=== PATIENT | female | born 1975 | race African-American/Black ===

== ENCOUNTER → 2016-08-26 | Outpatient (CLI) | payer BC ==
[~2016-08-26] MED LIST: BACTRIM DS TAB1 EACH; CLEOCIN HCL300 M1 PO; CULTURELLE CAP1 EACH PO; FERRO-TIME325 MG PO; IBUPROFEN PO; IBUPROFEN800 MG; IRON325 MG PO; PAIN RELIEF650 MG PO; ULTRAM PO; ZYVOX600 MG PO; [UNRECOGNIZED DRUG - OTHER]
--- NOTE | ~2016-08-26 | US85 ---
[facility] A Service [facility] RADIOLOGY TEXT RESULTS PATIENT: DEMARCUS BARTH LOCATION: [facility] : 75 UNIT #: [id number] AGE: [address]: EVA RIVERA APRN SEX: F ORDER DR: [id number] [facility] [address] [facility]. [place], [place] [address] [id number] O MR#: [id number] Acc #: [id number] NAME: DEMARCUS BARTH : 1975 SEX: F STUDY DATE/TIME: 08/26/2016 19:19 UNIT: [facility] ROOM: STUDY DESCRIPTION: LE Veins Unilat or Ltd Stdy Ordering Physician: Eva Rivera A.P.R.N. MEDICAL IMAGING REPORT This report is preliminary unless electronic signature is present EXAM Right lower extremity venous duplex 08/26/2016 HISTORY Right lower extremity pain and swelling in right calf for 2 weeks. Evaluate for deep vein thrombosis. History of previous DVT. TECHNIQUE Venous ultrasound examination of the right lower extremity was performed using grayscale, spectral Doppler and color flow Doppler imaging. FINDINGS The examination is negative. There is no evidence of right lower extremity deep venous thrombus from the groin to the lower calf. Visualized greater saphenous vein is also patent. IMPRESSION Negative examination. No evidence of right lower extremity deep venous thrombosis. Dictated by... Sheldon Aguilar M.D. THIS IS AN ELECTRONICALLY VERIFIED REPORT Sheldon Aguilar M.D. at 08/27/2016 2:14 PM KRT/pcl TD: 08/26/2016 22:33 JOB #: [id number] [facility] A Service [facility] RADIOLOGY TEXT RESULTS PATIENT: DEMARCUS BARTH LOCATION: [facility] : 75 UNIT #: [id number] AGE: [address]: EVA RIVERA APRN SEX: F ORDER DR: MEDICAL IMAGING REPORT Page 1 of 1 COPY
== END | disposition home or self-care (01) ==
LOC: CGUS 18:19
DX: R60.0 Localized edema (principal)
CPT/HCPCS: 93971

== ENCOUNTER 2016-10-08 16:31 | Emergency (ER) | payer BC ==
--- NOTE | ~2016-10-08 | US85 ---
[facility]. [facility] A Service [facility] RADIOLOGY TEXT RESULTS PATIENT: DEMARCUS BARTH LOCATION: SED : 75 UNIT #: [id number] AGE: [address]: Leda Avila SEX: F ORDER DR: [id number] [place] [id number] E MR#: [id number] Acc #: [id number] NAME: DEMARCUS BARTH : 1975 SEX: F STUDY DATE/TIME: 10/08/2016 18:14 UNIT: SED ROOM: STUDY DESCRIPTION: LE Veins Unilat or Ltd Stdy Attending Physician: Leda Avila Pa-C Ordering Physician: Leda Avila Pa-C Primary Care Physician: [facility] MEDICAL IMAGING REPORT This report is preliminary unless electronic signature is present. EXAM Right lower extremity venous duplex Doppler. HISTORY Right lower calf pain and swelling for 1 month. TECHNIQUE Venous ultrasound examination of the right lower extremity was performed using grayscale, spectral Doppler and color flow Doppler imaging. FINDINGS The examination is negative. There is no evidence of right lower extremity deep venous thrombus from the groin to the lower calf. Visualized greater saphenous vein is also patent. IMPRESSION Negative examination. No evidence of right lower extremity deep venous thrombosis. Dictated by... Veto Barton M.D. THIS IS AN ELECTRONICALLY VERIFIED REPORT Veto Barton M.D. at 10/08/2016 8:50 PM MABLE/jamarcus TD: 10/08/2016 20:41 JOB #: [id number] MEDICAL IMAGING REPORT [facility] A Service [facility] RADIOLOGY TEXT RESULTS PATIENT: DEMARCUS BARTH LOCATION: SED : 75 UNIT #: [id number] AGE: [address]: Leda Avila SEX: F ORDER DR: Page 1 of 1
[2016-10-08] MEDS ORDERED: IBUPROFEN800 MG (16:36)
[2016-10-08] MEDS ORDERED: FERRO-TIME325 MG PO (16:36)
[2016-10-08] MEDS ORDERED: BACTRIM DS TAB1 EACH (16:37)
== END 2016-10-08 19:55 | disposition home or self-care (01) ==
LOC: SED 16:31
DX: L03.115 Cellulitis of right lower limb (principal)
CPT/HCPCS: 93971; 96372; 99284

== ENCOUNTER 2016-10-16 11:55 | Inpatient (IN) | payer BC ==
--- NOTE | ~2016-10-16 | US85 ---
[facility] A Service [facility] RADIOLOGY TEXT RESULTS PATIENT: DEMARCUS BARTH LOCATION: [facility] : 75 UNIT #: [id number] AGE: [address]: Yajaira Pitt MD SEX: F ORDER DR: [id number] [facility] [address] [place], [place] [address] [id number] I MR#: [id number] Acc #: [id number] NAME: DEMARCUS BARTH : 1975 SEX: F STUDY DATE/TIME: 10/16/2016 15:50 UNIT: A ROOM: [facility] STUDY DESCRIPTION: US LE Veins Unilat or Ltd Stdy Attending Physician: Michelle Peck M.D. Ordering Physician: Abelardo Bey M.D. MEDICAL IMAGING REPORT This report is preliminary unless electronic signature is present EXAM Unilateral right lower extremity venous Doppler HISTORY Right leg cellulitis. TECHNIQUE Study was performed alberts-scale imaging, color flow imaging and Doppler waveform analysis. Exam was performed on October 16 but uncertainty over documented paperwork delayed final interpretation until today. FINDINGS There is normal color flow, compressibility, and where appropriate respiratory phasicity and/or augmentation throughout the entire right lower extremity deep venous system and the superficial saphenous vein as well, though, of note, the peroneal vein was not visualized. IMPRESSION Negative unilateral right lower extremity venous Doppler. No evidence of DVT. Dictated by... Jeff Awad M.D. THIS IS AN ELECTRONICALLY VERIFIED REPORT Jeff Awad M.D. at 10/24/2016 5:38 PM TEV/pcl TD: 10/17/2016 17:10 [facility] A Service [facility] RADIOLOGY TEXT RESULTS PATIENT: DEMARCUS BARTH LOCATION: [facility] : 75 UNIT #: [id number] AGE: [address]: Yajaira Pitt MD SEX: F ORDER DR: JOB #: [id number] MEDICAL IMAGING REPORT Page 1 of 1 COPY
--- NOTE | ~2016-10-16 | BMI ---
[facility] Nutrition Therapy DATE: 10/17/16 Patient: DEMARCUS BARTH Physician: TANGELA Address: [address] Room/Bed: [address] [place] [address], Zip: [place] [address] Admit Date: 10/16/16 Date of : 75 Height: 5 3.5 Weight: 239 108.4 HIGH BMI NOTE: ANTHROPOMETRICS: HT: 63.5" WT: 108.6 KG BMI: 41.7 DIET: HEART HEALTHY RECOMMENDATIONS: 1. CONTINUE CURRENT DIET TO PROMOTE GRADUAL WEIGHT LOSS TOWARDS A HEALTHY BMI. Respectfully, MOISE SANTOS RD, LD [facility] and Nutrition[facility] cc: client file
--- NOTE | ~2016-10-16 | DS ---
Unit #: [id number] #: [id number] Patient: DEMARCUS BARTH [id number] [address] [place], [place] [address] [id number] I MR#: [id number] NAME: DEMARCUS BARTH ROOM: 236 Age: 41 Sex: F Admission Date: 10/16/2016 : 1975 Discharge Date: 10/22/2016 Attending Physician: Yajaira Pitt M.D. [facility] SUMMARY REASON FOR ADMISSION Right lower extremity cellulitis. HISTORY OF PRESENT ILLNESS/HOSPITAL COURSE Patient is a very pleasant 41-year-old female with a prior history of iron deficiency anemia who presented secondary to right lower extremity swelling. She was seen several times as an outpatient both at the [facility] facility, as well as at the primary care physician's office secondary to nonresolving symptoms. She presented to our ER. She was placed on vancomycin and Zosyn, and appropriate consultation was placed to ID services. Infectious disease services continued to follow the patient through her hospital course. She did eventually undergo an MRI of her right calf for concern for possible underlying osteomyelitis that was negative. It did reveal superficial cellulitis with no acute abscess formation. At this point in time, her right lower extremity has improved. It has been appropriately wrapped. Infectious Disease services has stated that patient is stable for discharge on Zyvox p.o. for an additional 10 days. She will follow up as well with Dr. Rojas at [facility] for ongoing care. I have also given her a prescription for ferrous gluconate 324 mg p.o. b.i.d. as she does have a longstanding history of iron deficiency anemia with a decreased MCV. She also tells me she has a longstanding history of menometrorrhagia for which she was following up as an outpatient. In the past, she has been unable to tolerate ferrous sulfate secondary to GI issues, but she was able to tolerate the gluconate much better while she was here. I have asked her to discontinue Motrin/Advil altogether secondary to decreased hemoglobin, as well as increased risk of GI bleed. At this point in time, patient is clinically stable for discharge. She will be given a prescription for compression stockings 15-20 mmHg right lower extremity to be worn at all times while patient is standing. Follow up with primary care physician in seven to 10 days. FINAL DISCHARGE DIAGNOSES 1. Right lower extremity cellulitis. 2. Bilateral venous stasis. 3. Morbid obesity. Unit #: [id number] #: [id number] Patient: DEMARCUS BARTH 4. Anemia, iron deficiency. 5. Menometrorrhagia. DISCHARGE MEDICATIONS 1. Tylenol 650 mg p.o. q.6 p.r.n. 2. Probiotic daily. 3. Ferrous gluconate 324 mg p.o. b.i.d. 4. Vitamin B12 at 1000 mcg IM q.2 weeks to be arranged by primary care physician. 5. Zyvox 600 mg p.o. b.i.d. x10 days. DISCHARGE CONDITION Stable. DISCHARGE DISPOSITION Home. FOLLOWUP As outlined above. Dictated by... Lilly Sorensen/laura TD: 10/23/2016 14:50 JOB #: [id number] DISCHARGE SUMMARY Page 1 of 1 X Boom Barriga MD X DISCHARGE SUMMARY
--- NOTE | ~2016-10-16 | MR108 ---
[facility] A Service of [facility] RADIOLOGY TEXT RESULTS PATIENT: DEMARCUS BARTH LOCATION: C2A 236- : 75 UNIT #: [id number] AGE: [address]: Michelle Peck MD SEX: F ORDER DR: [id number] [facility] [address] [place], [place] [address] [id number] I MR#: [id number] Acc #: [id number] NAME: DEMARCUS BARTH : 1975 SEX: F STUDY DATE/TIME: 10/19/2016 10:49 UNIT: C2A ROOM: [facility] STUDY DESCRIPTION: MR Ernestina Panda WWo Cont Rt Attending Physician: Michelle Peck M.D. Ordering Physician: Que Rojas M.D. [facility] RE[facility] This report is preliminary unless electronic signature is present. EXAM MRI of the right lower extremity with and without contrast HISTORY 41-year-old female complains of calf swelling and discoloration since September 19. Suspect lower extremity cellulitis. Evaluate for abscess. Evaluate for lower extremity mass lesion. COMPARISON Right lower extremity venous Doppler 10/16/2016. TECHNIQUE Multiplanar, multiecho imaging is performed of the right lower leg utilizing a high-field magnet and dedicated protocol. Coronal and axial T1-weighted images were performed following IV gadolinium. FINDINGS Examination demonstrates moderate diffuse soft tissue swelling and edema throughout the lower extremity primarily within the subcutaneous space as well as some confluent edema at the intersection of the deep space and the superficial space. There is a small focus of abnormal signal within the subcutaneous fat within the medial mid calf which shows a subtle enhancement postcontrast. This measures about 8 cm in length and could represent a focal area of cellulitis. No mass lesions identified. No evidence of an abscess. No deep compartment involvement. Osseous structures and visualized neurovascular structures unremarkable. IMPRESSION Generalized soft tissue swelling and edema about the lower extremity as well as a more focal area of confluent edema within the subcutaneous tissues of the mid to medial calf which shows subtle enhancement postcontrast which may represent a focal area of cellulitis. No evidence of an abscess or mass lesion. No deep compartment involvement is STS. [facility] A Service of [facility] RADIOLOGY TEXT RESULTS PATIENT: DEMARCUS BARTH LOCATION: [facility] 236-01 : 75 UNIT #: [id number] AGE: [address]: Michelle Peck MD SEX: F ORDER DR: identified. Dictated by... Elyssa Choudhury M.D. THIS IS AN ELECTRONICALLY VERIFIED REPORT Elyssa Choudhury M.D. at 10/19/2016 9:14 PM STEPHEN/radha TD: 10/19/2016 14:48 JOB #: [id number] [facility] REPORT Page 1 of 1 COPY
--- NOTE | ~2016-10-16 | HP ---
Unit #: [id number] #: [id number] Patient: DEMARCUS BARTH [id number] [facility]. [place], [place] [address] [id number] I MR#: [id number] NAME: DEMARCUS BARTH ROOM: 48907 Age: 41 Sex: F Admission Date: 10/16/2016 : 1975 Attending Physician: Donna Redmond M.D. Primary Care Physician: [facility]. HISTORY AND PHYSICAL CHIEF COMPLAINT Cellulitis, right leg, getting worse. HISTORY OF PRESENT ILLNESS The patient is a 41-year-old female with no significant past medical history who presented to the emergency department for evaluation of the above. The patient states that she noticed redness and swelling of the right leg initially about a month ago. She has had multiple visits regarding the leg. She has been to [facility], [facility], and [facility]. She has also been seen in the emergency department at [facility] on October 08, 2016. She has been on multiple antibiotics including Bactrim, Keflex, and most recently clindamycin. She was started on clindamycin October 08, 2016. She has been taking it as prescribed. She states that it has not gotten any better and is actually getting worse. She did have a right lower extremity venous Doppler on October 08 that was negative. In the emergency department today, temperature and blood pressure were 98.2 and 149/90, respectively. She was given vancomycin and Zosyn. She is being admitted to [facility] for evaluation and further treatment. PAST MEDICAL HISTORY The patient denies any hospitalizations other than for childbirth. PAST SURGICAL HISTORY section. SOCIAL HISTORY The patient lives with her son and fiance. There is no tobacco, alcohol, or illicit drug use. 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 FAMILY HISTORY Notable for her mother having diabetes and hypertension. ALLERGIES No known allergies. HOME MEDICATIONS 1. Clindamycin. 2. Culturelle. Unit #: [id number] #: [id number] Patient: DEMARCUS BARTH 3. Ibuprofen. 4. Iron. Home medications will need to be reviewed and verified. REVIEW OF SYSTEMS A complete review of systems is negative except as indicated in the History of Present Illness. PHYSICAL EXAMINATION VITAL SIGNS: Temperature is 98.2, pulse 75, respirations 16, blood pressure 149/90, most recently 138/79, and oxygen saturation is 100% on room air. GENERAL: Patient is a very pleasant female who is awake, alert, and in no acute distress. HEENT: Head is atraumatic. Mucous membranes are moist. NECK: Supple. Trachea is midline. CARDIOVASCULAR: Regular rate and rhythm. LUNGS: Clear to auscultation bilaterally with no increased work of breathing. ABDOMEN: Soft and nontender with bowel sounds present in all four quadrants. EXTREMITIES: No pedal edema involving the left lower extremity. The right lower extremity demonstrates an area of erythema and induration, as well as edema involving the medial and posterior aspect of the right lower extremity. She has a palpable 2+ dorsalis pedis pulse involving the right foot. NEUROLOGIC: Patient is awake and alert. She follows commands. PSYCHIATRIC: Mood and affect are normal. Patient is cooperative. SKIN: Skin of examined areas demonstrates the previously described abnormalities. DIAGNOSTIC STUDIES LABORATORY: Complete blood count notable for hemoglobin and hematocrit of 9.8 and 33, respectively, MCV is 67.2, and RDW is 20.9. Basic metabolic panel is essentially normal. ASSESSMENT The patient is a 41-year-old female with: 1. Right lower extremity cellulitis that has failed outpatient treatment with Bactrim, Keflex, and clindamycin. She was given vancomycin and Zosyn in the emergency department. 2. Microcytic anemia. The patient's hemoglobin is 9.8 today with no baseline for comparison. MCV is 67.2. PLAN 1. Admit to med/surg. 2. Healthy heart diet. 3. Blood cultures x2. 4. Vancomycin IV and Zosyn IV pending further workup. 5. Right lower extremity venous Doppler. 6. P.r.n. Helen. 7. P.r.n. Zofran. 8. Check CPK. 9. Iron studies, B12, and folate. 10. Hemoccult stool. 11. Repeat labs in the morning. 12. Additional workup and consultants based on above. Unit #: [id number] #: [id number] Patient: DEMARCUS BARTH 1. Dictated by Donna Redmond M.D. IAM/am TD: 10/16/2016 14:54 JOB #: [id number] HISTORY AND PHYSICAL Page 1 of 1 X Donna Redmond MD X HISTORY AND PHYSICAL
--- NOTE | ~2016-10-16 | CO ---
Unit #: [id number] #: [id number] Patient: DEMARCUS BARTH [id number] [address] [place], [place] [address] [id number] I MR#: [id number] NAME: DEMARCUS BARTH ROOM: 236 Age: 41 Sex: F Admission Date: 10/16/2016 : 1975 Attending Physician: Yajaira Pitt M.D. Primary Care Physician: [facility] Rosy Consultation Date: 10/19/2016 CONSULTATION REPORT REASON FOR CONSULTATION Right lower extremity cellulitis. HISTORY OF PRESENT ILLNESS This is a 41-year-old white female without any significant past medical history, who was admitted with pain, redness, and swelling of the right lower extremity going on for 2 to 3 weeks. She had received 2 to 3 courses of antibiotics orally without any improvement. She finally came to the ER, where she was hospitalized and started on vancomycin and Zosyn. ID was consulted for further evaluation. The patient does not have any fever or chills, but she does have significant pain, swelling, and redness in that area. There was no history of any recent injury or trauma. She had no documented fever or hypotension. ID was consulted for antibiotic recommendations. PAST MEDICAL HISTORY No significant past medical illnesses. PAST SURGICAL HISTORY . SOCIAL HISTORY She lives with her son. There is no history of alcohol, drug, or tobacco abuse. FAMILY HISTORY Diabetes and hypertension. ALLERGIES None. HOME MEDICATIONS Clindamycin, Culturelle, ibuprofen, and iron. In the hospital, she is on vancomycin and Zosyn as well. SYSTEMIC REVIEW Right lower extremity pain, redness, and swelling. There is no fever or chills. No drainage or open wounds. No abdominal pain, dysuria, diarrhea, cough, chest pain, headache, or mental status changes. PHYSICAL EXAMINATION GENERAL: Reveals a young female, who is awake and alert, in no acute distress. VITAL SIGNS: Stable. Temperature is 98.2. No fever was documented Unit #: [id number] #: [id number] Patient: DEMARCUS BARTH during this admission. Heart rate is 70, respiration 18, blood pressure 110/70. HEENT: Unremarkable. NECK: Supple. There is no JVD or edema. LUNGS: Clear. HEART: Sounds normal. ABDOMEN: Soft and nontender. There is no organomegaly or ascites. Bowel sounds normal. EXTREMITIES: Right lower extremity examination shows signs of chronic venous stasis with pigmentation and stasis dermatitis. The area is tender. There may be some lobulated swelling posterior distal calf. Some cellulitis also noted, but there is no obvious abscess or lymphangitis. DIAGNOSTIC STUDIES LABORATORY RESULTS: Blood cultures are negative to date. White count on admission was 5.8, today it is 5.8 as well; hematocrit 30.7; platelets 375. BMP is unremarkable. IMPRESSION Chronic venous stasis with possible cellulitis, somewhat concerned about lobulated appearance of posterior calf, which may indicate underlying mass or possible sterile abscesses, although, clinically, abscesses looks very unlikely. RECOMMENDATIONS Continue with current antimicrobial therapy. I will order MRI of the right lower extremity to rule out any mass or abscess. Further recommendation will follow. Thank you Dr. Pitt for asking me to see this patient. We will follow along with you. Dictated by... Lilly Ledbetter/dustin TD: 10/21/2016 17:41 JOB #: [id number] CONSULTATION REPORT Page 1 of 1 X Que Rojas MD X CONSULTATION REPORT
--- NOTE | ~2016-10-16 | TOC ---
Unit #: [id number] #: [id number] Patient: DEMARCUS BARTH [id number] [facility]. [place], [place] [address] [id number] I MR#: [id number] NAME: DEMARCUS BARTH ROOM: 236 Age: 41 Sex: F Admission Date: 10/16/2016 : 1975 Attending Physician: Yajaira Pitt M.D. Primary Care Physician: [facility], TRANSFER OF CARE SUMMARY DIAGNOSIS ON ADMISSION Right lower extremity cellulitis. CURRENT DIAGNOSES 1. Right lower extremity cellulitis, failing outpatient therapy. 2. Anemia. CONSULTATION Dr. Rojas in ID consultation. HOSPITAL COURSE A 41-year-old female was admitted to [facility] with right lower extremity cellulitis. Details are as per admission H and P. Patient has failed a couple of outpatient antibiotics. Patient was started on IV antibiotics, but her response has been poor. Therefore, infectious disease was consulted who ordered a MRI scan of lower extremity which did not reveal any evidence of abscess but showed enhancement suggestive of cellulitis. Patient is currently on IV antibiotics and further hospital course will be dictated by my partner. Dictated by... Lilly Good/belkis TD: 10/20/2016 15:23 JOB #: [id number] TRANSFER OF CARE SUMMARY Page 1 of 1 X Yajaira Pitt MD X TRANSFER OF CARE SUMMARY
[~2016-10-16 11:55] MED LIST changes: -CLEOCIN HCL300 M1 PO; -CULTURELLE CAP1 EACH PO; -IBUPROFEN PO; -IRON325 MG PO; -PAIN RELIEF650 MG PO; -ULTRAM PO; -ZYVOX600 MG PO; -[UNRECOGNIZED DRUG - OTHER]
[2016-10-16 12:57] LABS: BASOPHIL# 0.1 X10e3 (0-0.3); BASOPHIL% 0.9 % (0-2.5); EOSINOPHIL# 0.3 X10e3 (0-0.7); EOSINOPHIL% 4.7 % (0.0-7.0); HEMOGLOBIN 9.8 gm/dL (12.0-16.0); LYMPHOCYTE# 2.1 X10e3 (1.0-3.5); LYMPHOCYTE% 35.9 % (17.0-45.0); MEAN CELL VOLUME 67.2 FL (83-96); MEAN CORPUSCULAR HGB CONC 29.8 g/dL (30-36); MEAN PLATELET VOLUME 8.1 FL (6.5-11.5); MONOCYTE# 0.7 X10e3 (0-1.0); MONOCYTE% 11.6 % (3.0-12.0); NEUTROPHIL# 2.7 X10e3 (1.5-7.1); NEUTROPHIL% 46.9 % (40-75); PLATELET COUNT 402 X10e3 (140-420); RED CELL DISTRIBUTION WIDTH 20.9 % (11.0-15.5); WHITE BLOOD COUNT 5.8 X10e3 (4.0-10.5)
[2016-10-16 12:58] LABS: DIFF IND NO
[2016-10-16 13:21] LABS: BUN/CREATININE RATIO 13.33; CALCIUM SERUM 8.6 mg/dL (8.4-10.2); CREATININE SERUM 0.6 mg/dL (0.6-1.4); GLOM FILT RATE Estimated 131.2 mL/min (>60); POTASSIUM 3.7 mmol/L (3.5-5.1)
[2016-10-16] MEDS ORDERED: CLEOCIN HCL300 M1 PO (15:27)
[2016-10-16] MEDS ORDERED: CULTURELLE CAP1 EACH PO (15:28)
[2016-10-16] MEDS ORDERED: IRON325 MG PO (15:29)
[2016-10-16] MEDS ORDERED: IBUPROFEN PO (15:29)
[2016-10-16 15:41] LABS: FOLATE (FOLIC ACID) 8.5 ng/mL (>5.8)
[2016-10-17 05:24] LABS: HEMATOCRIT 29.5 % (35.0-45.0); HEMOGLOBIN 8.8 gm/dL (12.0-16.0); MEAN CELL VOLUME 67.1 FL (83-96); MEAN CORPUSCULAR HEMOGLOBIN 20.1 PG (28-34); MEAN PLATELET VOLUME 7.8 FL (6.5-11.5); RED BLOOD COUNT 4.39 X10e (3.90-5.30); RED CELL DISTRIBUTION WIDTH 21.5 % (11.0-15.5); WHITE BLOOD COUNT 6.4 X10e3 (4.0-10.5)
[2016-10-17 05:44] LABS: CALCIUM SERUM 8.4 mg/dL (8.4-10.2); CREATININE SERUM 0.6 mg/dL (0.6-1.4); GLOM FILT RATE Estimated 131.2 mL/min (>60); POTASSIUM 3.6 mmol/L (3.5-5.1)
[2016-10-18 08:10] LABS: HEMOGLOBIN 9.2 gm/dL (12.0-16.0); WHITE BLOOD COUNT 5.8 X10e3 (4.0-10.5)
[2016-10-18 08:28] LABS: CALCIUM SERUM 8.5 mg/dL (8.4-10.2); CREATININE SERUM 0.7 mg/dL (0.6-1.4); GLOM FILT RATE Estimated 124.7 mL/min (>60); MAGNESIUM 1.9 mg/dL (1.6-3.0); POTASSIUM 3.5 mmol/L (3.5-5.1)
[2016-10-18 08:38] LABS: HEMATOCRIT 30.7 % (35.0-45.0); MEAN CELL VOLUME 66.9 FL (83-96); MEAN CORPUSCULAR HEMOGLOBIN 20.1 PG (28-34); MEAN CORPUSCULAR HGB CONC 30.1 g/dL (30-36); MEAN PLATELET VOLUME 8.1 FL (6.5-11.5); RED BLOOD COUNT 4.59 X10e (3.90-5.30); RED CELL DISTRIBUTION WIDTH 21.5 % (11.0-15.5)
[2016-10-19 06:28] LABS: BUN/CREATININE RATIO 13.33; CALCIUM SERUM 8.8 mg/dL (8.4-10.2); CREATININE SERUM 0.6 mg/dL (0.6-1.4); GLOM FILT RATE Estimated 131.2 mL/min (>60); POTASSIUM 3.7 mmol/L (3.5-5.1)
[2016-10-21 05:53] LABS: HEMATOCRIT 32.5 % (35.0-45.0); HEMOGLOBIN 9.6 gm/dL (12.0-16.0); MEAN CELL VOLUME 67.6 FL (83-96); MEAN CORPUSCULAR HEMOGLOBIN 19.9 PG (28-34); MEAN CORPUSCULAR HGB CONC 29.4 g/dL (30-36); MEAN PLATELET VOLUME 7.9 FL (6.5-11.5); RED BLOOD COUNT 4.8 X10e (3.90-5.30); RED CELL DISTRIBUTION WIDTH 21.8 % (11.0-15.5); WHITE BLOOD COUNT 6.1 X10e3 (4.0-10.5)
[2016-10-21 06:41] LABS: CALCIUM SERUM 8.8 mg/dL (8.4-10.2); CREATININE SERUM 0.8 mg/dL (0.6-1.4); GLOM FILT RATE Estimated 106.2 mL/min (>60); POTASSIUM 3.6 mmol/L (3.5-5.1)
[2016-10-22] MEDS ORDERED: PAIN RELIEF650 MG PO (10:13)
[2016-10-22] MEDS ORDERED: [UNRECOGNIZED DRUG - OTHER] (10:16)
[2016-10-22] MEDS ORDERED: ZYVOX600 MG PO (10:17)
[2016-10-22] MEDS ORDERED: ULTRAM PO (10:17)
== END 2016-10-22 12:40 | disposition home or self-care (01) | DRG 603 ==
LOC: CED 11:55 → C2A 14:25 → CEDOF 14:25 → CED 14:50 → CEDOF 14:50 → C2A 20:52 → CEDOF 20:52 → C2A 10-17 06:22
PROVIDERS: Emergency Medicine; Family Medicine; Internal Medicine
DX: L03.115 Cellulitis of right lower limb (principal); Z68.41 Body mass index [BMI] 40.0-44.9, adult; I87.8 Other specified disorders of veins; E66.01 Morbid (severe) obesity due to excess calories; N92.1 Excessive and frequent menstruation with irregular cycle; D50.9 Iron deficiency anemia, unspecified; E53.8 Deficiency of other specified B group vitamins; I87.2 Venous insufficiency (chronic) (peripheral)
CPT/HCPCS: 36415; 73720; 80048; 80202; 82550; 82607; 82728; 82746; 83540; 83550; 83735; 85025; 85027; 87040; 93971; 99284; A9577; J2543; J3370; J3420

== ENCOUNTER 2016-12-04 06:58 | Emergency (ER) | payer BC ==
[~2016-12-04] VITALS: Ht 160 cm; Wt 107.0 kg
--- NOTE | ~2016-12-04 | US98 ---
[facility] A Service of [facility] & [facility] RADIOLOGY TEXT RESULTS PATIENT: DEMARCUS BARTH LOCATION: [facility] : 75 UNIT #: [id number] AGE: [address]: Annamaria Lee APRN SEX: F ORDER DR: [id number] [facility] [address]. [place], [place] [address] [id number] E MR#: [id number] Acc #: [id number] NAME: DEMARCUS BARTH : 1975 SEX: F STUDY DATE/TIME: 12/04/2016 9:50 UNIT: [facility] ROOM: STUDY DESCRIPTION: US Pelvic Non-OB Complete Attending Physician: Annamaria Lee A.P.R.N. Ordering Physician: Vini Breaux M.D. [facility]AG[facility] REPORT This report is preliminary unless electronic signature is present EXAM Transabdominal and transvaginal pelvic ultrasound. DATE 12/04/2016 HISTORY Abnormal vaginal bleeding, passing large clots with pelvic pain for 1 day. Has IUD, irregular periods since IUD placement. COMPARISON None. FINDINGS Transabdominal imaging was performed for generalized visualization of pelvic structures while transvaginal imaging was performed for a more detailed visualization of the adnexal regions. Uterus measures approximately 9.3 x 5.2 x 5.5 cm. The myometrium is very heterogeneous, and thickened, consistent with leiomyomatous change. A hypoechoic solid-appearing nodule extends into the left adnexal region, and appears contiguous to the uterus, thought to represent a large subserosal fibroid measuring 7.9 x 5.3 x 6.6 cm. However, no normal left ovary can be visualized. The endometrial bilayer is very difficult to accurately assess due to obscuration by the aforementioned thickened heterogeneous myometrium. On 1 of the sagittal images, the endometrial bilayer is thought to measure about 6 mm thickness. Intrauterine device is not visualized within the endometrial canal on this examination. The right ovary cannot be satisfactorily visualized either transabdominally or transvaginally. [facility] A Service of [facility] RADIOLOGY TEXT RESULTS PATIENT: DEMARCUS BARTH LOCATION: [facility] : 75 UNIT #: [id number] AGE: [address]: Annamaria Lee APRN SEX: F ORDER DR: IMPRESSION 1. Bulky heterogeneous uterus. Heterogeneous thickening of the myometrium, thought to represent multiple uterine leiomyomas. 2. 7.9 cm soft tissue nodule in the left adnexal region. It appears contiguous to the uterus, and is favored to represent a large subserosal fibroid. However, the normal left ovary cannot be visualized. Left ovarian lesion cannot be completely excluded. Consider correlation to MRI pelvis without and with contrast female pelvic imaging protocol for further evaluation 3. The intrauterine device is not visualized on today's examination. It is unclear whether it is truly in place and just obscured by the thickened heterogeneous myometrium, or potentially the intrauterine device is malpositioned. Again, this could be further assessed with pelvic MRI imaging. 4. Neither the right nor the left ovary is satisfactorily visualized on today's examination. Dictated by... Trish Michael M.D. THIS IS AN ELECTRONICALLY VERIFIED REPORT Trish Michael M.D. at 12/05/2016 2:03 PM MARVIN/analia TD: 12/04/2016 14:59 JOB #: [id number] MEDICAL IMAGING REPORT Page 1 of 1 COPY
[~2016-12-04 06:58] MED LIST changes: +CLEOCIN HCL300 M1 PO; +CULTURELLE CAP1 EACH PO; +IBUPROFEN PO; +IRON325 MG PO; +PAIN RELIEF650 MG PO; +ULTRAM PO; +ZYVOX600 MG PO; +[UNRECOGNIZED DRUG - OTHER]
[2016-12-04 08:05] LABS: BASOPHIL% 0.4 % (0-2.5); EOSINOPHIL# 0.1 X10e3 (0-0.7); EOSINOPHIL% 1.8 % (0.0-7.0); HEMATOCRIT 34.4 % (35.0-45.0); HEMOGLOBIN 10.7 gm/dL (12.0-16.0); LYMPHOCYTE# 1.2 X10e3 (1.0-3.5); LYMPHOCYTE% 24.3 % (17.0-45.0); MEAN CELL VOLUME 72.7 FL (83-96); MEAN CORPUSCULAR HEMOGLOBIN 22.5 PG (28-34); MEAN CORPUSCULAR HGB CONC 30.9 g/dL (30-36); MEAN PLATELET VOLUME 7.8 FL (6.5-11.5); MONOCYTE# 0.6 X10e3 (0-1.0); MONOCYTE% 12.2 % (3.0-12.0); NEUTROPHIL# 3.1 X10e3 (1.5-7.1); NEUTROPHIL% 61.3 % (40-75); PLATELET COUNT 354 X10e3 (140-420); RED BLOOD COUNT 4.74 X10e (3.90-5.30); RED CELL DISTRIBUTION WIDTH 22.3 % (11.0-15.5); WHITE BLOOD COUNT 5.1 X10e3 (4.0-10.5)
[2016-12-04 08:07] LABS: DIFF IND YES
[2016-12-04 08:09] LABS: URINE SOURCE CLEAN CATCH
[2016-12-04 08:22] LABS: URINE APPEARANCE CLOUDY; URINE BILIRUBIN NEG (NEG); URINE BLOOD 3+ (NEG); URINE COLOR DK YELLOW; URINE GLUCOSE NEG (NEG); URINE KETONE TRACE (NEG); URINE LEUKOCYTE ESTERASE 2+ (NEG); URINE NITRATE NEG (NEG); URINE PH 5.5 (5-8); URINE PROTEIN 1+ (NEG); URINE SPECIFIC GRAVITY 1.037 (1.003-1.035); URINE UROBILINOGEN 0.2 MG/DL (NEG)
[2016-12-04 08:23] LABS: BILIRUBIN,TOTAL 0.6 mg/dL (0.2-2.0); CALCIUM SERUM 8.9 mg/dL (8.4-10.2); CREATININE SERUM 0.5 mg/dL (0.6-1.4); GLOM FILT RATE Estimated 139.3 mL/min (>60); POTASSIUM 3.6 mmol/L (3.5-5.1); PROTEIN TOTAL SERUM 7.3 g/dL (6.0-8.3)
[2016-12-04 08:24] LABS: CULTURE INDICATED? YES; U HYALINE CASTS AUWI 0-2 /[LPF]; URBCS1 AUWI 200-300 /[HPF] (0-2); URINE BACTERIA AUWI NEG (NEGATIVE); URINE SQUAMOUS EPITHELIAL CELL NONE SEEN /[HPF]; UWBCS1 AUWI 200-300 (0-5)
[2016-12-04 08:40] LABS: ANISOCYTOSIS MOD; PLATELET ESTIMATE NORMAL (NORMAL); SCHISTOCYTES PRESENT
[2016-12-04 08:41] LABS: HYPOCHROMIA SL; POIKILOCYTOSIS SL; TARGET CELLS SL
[2016-12-04 09:41] LABS: URINE SOURCE CLEAN CATCH
[2016-12-04 09:49] LABS: URINE APPEARANCE SL CLOUDY; URINE BILIRUBIN NEG (NEG); URINE BLOOD 2+ (NEG); URINE COLOR YELLOW; URINE GLUCOSE NORM (NORM); URINE KETONE NEG (NEG); URINE LEUKOCYTE ESTERASE 3+ (NEG); URINE NITRATE NEG (NEG); URINE PROTEIN 1+ (NEG); URINE SPECIFIC GRAVITY 1.025 (1.003-1.035); URINE UROBILINOGEN NORM (NORM)
[2016-12-04 09:50] LABS: CULTURE INDICATED? YES; URINE BACTERIA AUWI 1+ (NEGATIVE); URINE SQUAMOUS EPITHELIAL CELL FEW /[HPF]; UWBCS1 AUWI INNUM (0-5)
[2016-12-04 10:06] LABS: URINE YEAST PRESENT
[2016-12-08 23:37] LABS: CHLAMYDIA TRACH Not Detected (Not Detected); N GONOR Not Detected (Not Detected)
== END 2016-12-04 12:15 | disposition home or self-care (01) ==
LOC: CED 06:58
PROVIDERS: Nurse Practitioner
DX: N30.01 Acute cystitis with hematuria (principal); N93.8 Other specified abnormal uterine and vaginal bleeding; D21.9 Benign neoplasm of connective and other soft tissue, unspecified; N85.8 Other specified noninflammatory disorders of uterus; D64.9 Anemia, unspecified; Z79.899 Other long term (current) drug therapy
CPT/HCPCS: 36415; 76830; 76856; 80053; 81003; 84703; 85025; 87086; 87088; 87186; 87491; 87591; 87808; 87905; 99284